=== PATIENT | male | born 1945 | race Caucasian/White ===

== ENCOUNTER 2017-09-07 13:00 | Emergency (ER) | payer OTHER ==
[~2017-09-07] VITALS: Ht 185.4 cm; Wt 93.0 kg
[2017-09-07] MEDS ORDERED: VERAPAMIL ER120 MG (13:21)
[2017-09-07] MEDS ORDERED: ENALAPRIL MALE2.5 MG (13:21)
== END 2017-09-07 17:15 | disposition home or self-care (01) ==
LOC: ER 13:00
DX: R42 Dizziness and giddiness (principal)